=== PATIENT | female | born 1970 | race Caucasian/White ===

== ENCOUNTER 2018-08-24 17:31 | Emergency (ER) | payer MEDICARE, OTHER ==
--- NOTE | 2018-08-24 18:32 | XRAY Report ---
Reason: productive cough Procedure Date: 08/24/2018 Accession Number: [id number] / [id number] Procedure: XR - Chest 2 View X-Ray CPT Code: 75909 FULL RESULT: EXAM: CHEST RADIOGRAPHY EXAM DATE: 08/24/2018 05:58 PM. CLINICAL HISTORY: Chest pain COMPARISON: CHEST 2 VIEW PA/LAT 09/28/2016 7:56 PM. TECHNIQUE: 2 views. FINDINGS: Lungs/Pleura: No focal opacities evident. No pleural effusion. No pneumothorax. Normal volumes. Mediastinum: Heart and mediastinal contours are unremarkable. Other: None. IMPRESSION: No acute intrathoracic plain film abnormality. RADIA
[2018-08-24] MEDS ORDERED: ACETAMINOPHEN/CODEINE 300 MG/30 MG TABLET PO STA (18:58)
--- NOTE | 2018-08-24 19:02 | ED Physician Documentation ---
PD HPI URI - Stated complaint Stated Complaint: COUGH/CHEST PX - Chief complaint Chief Complaint: Resp - History obtained from History obtained from: Patient, Family - History of Present Illness Timing - onset: How many weeks ago (2) Timing duration: Weeks (2) Timing details: Gradual onset, Still present, Intermittant Pain level max: 6 Pain level now: 3 Associated symptoms: Nasal congestion, Rhinorrhea, Sore throat, Dry cough, Chest pain. No: Fever, Chills, Sweats, Sinus pain, Swollen nodes, Productive cough, Dyspnea Contributing factors: COPD / asthma. No: Sick contact, Travel Improves by: Medication Worsened by: Other Similar symptoms before: Diagnosis (Nothing) Recently seen: Clinic - Additional information Additional information: 48-year-old female with history of COPD and 1 pack/day cigarette smoking for 30 years here with complaint of chest pain with coughing the past couple of days. Patient stated have been having coughing the past 2 weeks and had seen his primary doctor and was prescribed steroid, inhaler and Robitussin. Denies any fever or shortness of breath. Patient states her chest wall pain is worse when she pushes on her ribs mostly on the left side and when she coughs and deep breathes. Denies any recent travel except worse became the other day and immobility.Patient is here to get a chest x-ray because she was concerned that she might have broken her ribs.Denies any trauma. Review of Systems Ten Systems: 10 systems reviewed and negative Constitutional: denies: Fever, Chills, Myalgias Throat: reports: Sore throat (From coughing too much) Cardiac: reports: Chest pain / pressure (Only with coughing). denies: Palpitations Respiratory: reports: Cough. denies: Dyspnea Musculoskeletal: denies: Back pain Neurologic: denies: Generalized weakness PD PAST MEDICAL HISTORY - Past Medical History Cardiovascular: Hypertension Respiratory: Asthma Endocrine/Autoimmune: None GI: None Musculoskeletal: Chronic back pain - Past Surgical History Past Surgical History: Yes - Present Medications Home Medications: Ambulatory Orders Medication Instructions Recorded Confirmed Methadone 5 mg PO BID 03/07/16 09/28/16 Propranolol [Inderal] 20 mg PO BID 03/07/16 09/28/16 Telmisartan [Micardis] 20 mg PO DAILY 03/07/16 09/28/16 Albuterol Sulf [Ventolin Hfa 1 - 2 puffs INH Q4HR PRN 09/28/16 09/28/16 Inhaler] Albuterol Sulf [Ventolin Hfa 2 puffs INH Q4HR PRN #1 inhaler 09/28/16 Inhaler] predniSONE [Prednisone] 40 mg PO DAILY 5 Days tablet 09/28/16 Acetaminophen/Cod 300/30 [Tylenol 1 each PO Q8HR PRN #12 tablet 08/24/18 #3] - Allergies Allergies/Adverse Reactions: Allergies Allergy/AdvReac Type Severity Reaction Status Date / Time No Known Drug Allergies Allergy Verified 08/24/18 17:39 - Social History Does the pt smoke?: Yes Smoking Status: Current every day smoker Does the pt drink ETOH?: No Does the pt have substance abuse?: No - Immunizations Immunizations are current?: Yes - POLST Patient has POLST: No PD ED PE NORMAL - Vitals Vital signs reviewed: Yes - General General: Alert and oriented X 3, No acute distress, Well developed/nourished - HEENT HEENT: Moist mucous membranes, Pharynx benign - Neck Neck: Supple, no meningeal sign - Cardiac Cardiac: RRR, No murmur - Respiratory Respiratory: No respiratory distress, Clear bilaterally, Other (Reproducible chest discomfort on her left chest specifically under her left breast and on left side of the sternal area.) - Abdomen Abdomen: Normal bowel sounds, Soft, Non tender, Non distended - Derm Derm: Warm and dry - Extremities Extremities: No deformity - Neuro Neuro: Alert and oriented X 3 - Psych Psych: Normal mood, Normal affect Results - Vitals Vitals: Vital Signs - 24 hr 08/24/18 17:36 Temperature 37.1 C Heart Rate 102 H Respiratory 18 Rate Blood Pressure 149/90 H O2 Saturation 100 Oxygen O2 Source Room air - EKG (time done) 1745 Rate: Rate (enter#) Rhythm: NSR [place]: Normal Intervals: Normal [place] QRS: Normal Ischemia: Normal ST segments PD MEDICAL DECISION MAKING - ED course Complexity details: re-evaluated patient (190Patient in no acute distress and nontoxic-appearing. Patient does not want any further workup. She will continue her prednisone and inhaler as prescribed her primary doctor. She will continue to take [id number] Motrin. Will discharge her on Tylenol No. 3 to help decrease the pain and coughing. Patient instructed to maintain safety when taking Tylenol 3 such as no alcohol no driving. Patient expressed understanding.), considered differential (Bronchitis, pneumonia, pleurisy, costochondritis, ACS or PE. ACS and PE are both unlikely based on examination and patient's history. Heart score 1. Wells score is 0), d/w patient, d/w family Departure - Departure Disposition: 01 Home, Self Care Clinical Impression: Bronchitis, Acute costochondritis Condition: Stable Instructions: ED Bronchitis Asthmatic, ED Chest Pain Costochondritis Prescriptions: Acetaminophen/Cod 300/30 [Tylenol #3] 1 each PO Q8HR PRN #12 tablet PRN Reason: Pain
[2018-08-24 19:20] VITALS: BP 146/90
== END 2018-08-24 19:26 | disposition home or self-care (01) ==
LOC: ED 17:31
DX: J40 Bronchitis, not specified as acute or chronic (principal); M94.0 Chondrocostal junction syndrome [Tietze]; J44.9 Chronic obstructive pulmonary disease, unspecified; F17.200 Nicotine dependence, unspecified, uncomplicated
CPT/HCPCS: 71046; 93005; 99283; A9270